=== PATIENT | female | born 1955 | race Hispanic/Latino ===

== ENCOUNTER 2017-05-25 08:41 | Outpatient (CLI) | payer BC | END 2017-05-25 08:42 | disposition home or self-care (01) | LOC: BICMAMMO 08:41 | PROVIDERS: ATTEND Physician Assistant | DX: Z12.31 Encounter for screening mammogram for malignant neoplasm of breast (principal) | CPT/HCPCS: 77063; 77067 ==

== ENCOUNTER 2018-06-04 15:25 | Outpatient (CLI) | payer BC | END 2018-06-04 15:26 | disposition home or self-care (01) | LOC: BICMAMMO 15:25 | PROVIDERS: ATTEND Physician Assistant | DX: Z12.31 Encounter for screening mammogram for malignant neoplasm of breast (principal) | CPT/HCPCS: 77063; 77067 ==

== ENCOUNTER 2021-02-21 07:57 | Outpatient (CLI) | payer BC, MEDICARE | END 2021-02-21 07:58 | disposition home or self-care (01) | LOC: BICRAD 07:57 | PROVIDERS: ATTEND Physician Assistant | DX: M47.26 Other spondylosis with radiculopathy, lumbar region (principal) | CPT/HCPCS: 72100 ==

== ENCOUNTER 2021-05-29 07:50 | Outpatient (CLI) | payer BC | END 2021-05-29 07:51 | disposition home or self-care (01) | LOC: BICMAMMO 07:50 | PROVIDERS: ATTEND Physician Assistant | DX: Z12.31 Encounter for screening mammogram for malignant neoplasm of breast (principal) | CPT/HCPCS: 77063; 77067 ==

== ENCOUNTER 2021-06-05 07:35 | Outpatient (CLI) | payer BC ==
[2021-06-05 08:43] LABS: Hemoglobin 10.5 g/dL (12.0-15.5); Mean Corpuscular HGB CONC 31.3 g/dL (32.0-36.0); Mean Corpuscular Hemoglobin 27.6 pg (27.0-33.0); Mean Corpuscular Volume 88.2 fl (81.6-98.3); Mean Platelet Volume 9.8 fl (7.4-10.4); Platelet Count 308 10x3/uL (150-450); RBC Distribution Width 13.6 % (11.5-14.5); Red Blood Cell (RBC) Count 3.81 10x6/uL (3.90-5.03); White Blood Cell (WBC) Count 6.5 10x3/uL (3.5-10.5)
[2021-06-05 09:21] LABS: Anion Gap 12 mmol/L (10-20); BUN (Urea Nitrogen) 23 mg/dL (9.8-20.1); Calc. Creatinine Clearance 0 mL/min (70-130); Calcium 9.8 mg/dL (7.8-10.44); Carbon Dioxide 27 mmol/L (23-31); Chloride 106 mmol/L (98-107); Glucose 102 mg/dL (80-115); Potassium 3.9 mmol/L (3.5-5.1); Sodium 141 mmol/L (136-145)
[2021-06-05 17:42] LABS: SARS-CoV-2 PCR by NAA Not Detected (NotDetected)
== END 2021-06-05 07:36 | disposition home or self-care (01) ==
LOC: LABBT 07:35
PROVIDERS: ATTEND Neurological Surgery
DX: Z01.818 Encounter for other preprocedural examination (principal); M48.062 Spinal stenosis, lumbar region with neurogenic claudication; Z20.822 Contact with and (suspected) exposure to COVID-19
CPT/HCPCS: 80048; 85027; 93005; 93010; U0003; U0005

== ENCOUNTER 2021-06-10 07:13 | Observation (INO) | payer BC ==
[2021-06-06 11:30] VITALS: BMI 46.0
[2021-06-10] MEDS ORDERED: SUGAMMADEX SODIUM 200 MG/2 ML VIAL ONE (10:06)
[2021-06-10] MEDS ORDERED: Fentanyl 250 MCG/5 ML VIAL ONE (10:06)
[2021-06-10] MEDS ORDERED: ceFAZolin 2 GM/Dextrose 50 ML IVPB ONE (10:51)
[2021-06-10] MEDS ORDERED: Lidocaine 1% PF 5 ML VIAL ONE (11:03)
[2021-06-10] MEDS ORDERED: Dexamethasone 20 MG/5 ML VIAL ONE (11:03)
[2021-06-10] MEDS ORDERED: PROPOFOL 200 MG/20 ML VIAL ONE (11:03)
[2021-06-10] MEDS ORDERED: Ondansetron PF 4 MG/2 ML Vial ONE (11:03)
[2021-06-10] MEDS ORDERED: Glycopyrrolate 0.2 MG/ML 5 ML SYRINGE ONE (11:03)
[2021-06-10] MEDS ORDERED: Rocuronium Bromide 10 MG/ML (10ML VIAL) ONE (11:03)
[2021-06-10] MEDS ORDERED: Promethazine HCl 25 MG/ML VIAL IVPB PRN ×2 (11:52→12:38)
[2021-06-10] MEDS ORDERED: Promethazine HCl 25 MG/ML VIAL IM PRN ×3 (11:52→17:15)
[2021-06-10] MEDS ORDERED: Ondansetron HCl/PF 4 MG/2 ML Vial IVP PRN ×3 (11:52→15:00)
[2021-06-10] MEDS ORDERED: Fentanyl 100 MCG/2 ML VIAL ONE ×3 (12:37→14:18)
[2021-06-10] MEDS ORDERED: HYDROmorphone 0.5 MG/0.5 ML SYRINGE ONE (14:49)
[2021-06-10] MEDS ORDERED: Non-Formulary Medication 1 EACH PO PRN (14:57)
[2021-06-10] MEDS ORDERED: Promethazine HCl 25 MG/ML VIAL IM/IV PRN (15:00)
[2021-06-10] MEDS ORDERED: HYDROmorphone 2 MG/ML VIAL SLOW IVP PRN (15:00)
[2021-06-10] MEDS ORDERED: Promethazine HCl 12.5 MG SUPP PR PRN (17:15)
[2021-06-10] MEDS ORDERED: traMADol HCl 50 MG TAB PO PRN (17:15)
[2021-06-10] MEDS ORDERED: Ondansetron PF 4 MG/2 ML Vial SLOW IVP PRN (17:15)
[2021-06-10] MEDS ORDERED: Mag-Al 1200 mg/1200 mg/30 ML UDCUP PO PRN (17:15)
[2021-06-10] MEDS ORDERED: Milk Of Magnesia 30 ML UDCUP PO PRN (17:15)
[2021-06-10] MEDS ORDERED: diphenhydrAMINE 50 MG/ML VIAL IVP PRN (17:15)
[2021-06-10] MEDS ORDERED: Acetaminophen/Codeine 30-300mg Tablet PO PRN ×2 (17:15)
[2021-06-10] MEDS ORDERED: diphenhydrAMINE 25 MG CAP PO PRN (17:15)
[2021-06-10] MEDS ORDERED: Promethazine 25 MG TAB PO PRN (17:15)
[2021-06-10] MEDS ORDERED: Morphine 4 MG/ML VIAL SLOW IVP PRN (17:15)
[2021-06-10] MEDS ORDERED: Ibuprofen 200 MG TAB PO PRN (17:19)
[2021-06-10] MEDS: Morphine 4 MG/ML VIAL SLOW IVP PRN (17:48)
[2021-06-10] MEDS: Sodium Chloride 0.9% 1,000 ML IV SCH (18:14)
[2021-06-10] MEDS: Cyclobenzaprine 10 MG TAB PO PRN (20:49)
[2021-06-10] MEDS: Topiramate 25 MG TAB PO SCH (20:49)
[2021-06-10] MEDS: traMADol HCl 50 MG TAB PO PRN (20:49)
[2021-06-10] MEDS: ceFAZolin 2 GM/Dextrose 50 ML 2 GM in Premix Bag 1 BAG IVPB SCH (20:50)
[2021-06-10] MEDS ORDERED: Escitalopram Oxalate 10 mg Tablet PO SCH (21:00)
[2021-06-11] MEDS: Morphine 4 MG/ML VIAL SLOW IVP PRN (00:35)
[2021-06-11] MEDS: Cyclobenzaprine 10 MG TAB PO PRN (05:05)
[2021-06-11] MEDS: ceFAZolin 2 GM/Dextrose 50 ML 2 GM in Premix Bag 1 BAG IVPB SCH (05:05)
[2021-06-11] MEDS: traMADol HCl 50 MG TAB PO PRN (05:05)
[2021-06-11] MEDS ORDERED: Levothyroxine Sodium 25 MCG TAB PO SCH (06:00)
[2021-06-11] MEDS: Sodium Chloride 0.9% 1,000 ML IV SCH (06:35)
[2021-06-11 08:16] VITALS: BP 110/62; TEMP 97.7
[2021-06-11] MEDS: Topiramate 25 MG TAB PO SCH (08:54)
[2021-06-11] MEDS ORDERED: Atenolol 50 MG TAB PO SCH (09:00)
[2021-06-11] MEDS ORDERED: Cyanocobalamin (Vitamin B-12) 1,000 MCG TAB PO SCH (09:00)
[2021-06-11] MEDS ORDERED: LUTEIN PO SCH (09:00)
[2021-06-11] MEDS ORDERED: Chlorthalidone 25 MG TAB PO SCH (09:00)
[2021-06-15] MEDS ORDERED: Ergocalciferol 1.25 MG(50,000 UNITS) CAP PO SCH (09:00)
== END 2021-06-11 13:32 | disposition home or self-care (01) ==
LOC: SDC 07:13 → T4-B 13:20
PROVIDERS: ADMIT Neurological Surgery; ATTEND Neurological Surgery
PROC: 01NB0ZZ Release Lumbar Nerve, Open Approach (ICD-10-PCS; principal; 2021-06-10)
DX: M48.062 Spinal stenosis, lumbar region with neurogenic claudication (principal); M19.90 Unspecified osteoarthritis, unspecified site; J45.909 Unspecified asthma, uncomplicated; I10 Essential (primary) hypertension; E07.9 Disorder of thyroid, unspecified; E66.9 Obesity, unspecified; Z68.42 Body mass index [BMI] 45.0-49.9, adult; Z79.899 Other long term (current) drug therapy
CPT/HCPCS: 76000; 96374; 96375; 96376; G0378; J0690; J1100; J1170; J2270; J2405; J2704; J3010; J3370; J7050; Q0169

== ENCOUNTER 2022-09-02 11:12 | Outpatient (CLI) | payer MEDICARE, OTHER | END 2022-09-02 11:13 | disposition home or self-care (01) | LOC: BICMAMMO 11:12 | PROVIDERS: ATTEND Physician Assistant | DX: Z12.31 Encounter for screening mammogram for malignant neoplasm of breast (principal); Z78.0 Asymptomatic menopausal state | CPT/HCPCS: 77063; 77067; 77080 ==

== ENCOUNTER 2023-07-01 10:38 | Outpatient (CLI) | payer OTHER | END 2023-07-01 10:39 | disposition home or self-care (01) | LOC: DTY/OP 10:38 | PROVIDERS: ATTEND Physician Assistant | DX: E66.01 Morbid (severe) obesity due to excess calories (principal) | CPT/HCPCS: 97802 ==